=== PATIENT | male | born 1930 | race Caucasian/White ===

== ENCOUNTER 2016-08-21 12:14 | Emergency (ER) | payer BC, OTHER ==
[~2016-08-21] VITALS: Ht 177.8 cm; Wt 83.0 kg
[~2016-08-21 12:14] MED LIST: CHOL2000 PO; CRDCD120 PO; LEVO25TA5 PO; LPT/40 PO; OMEG10007 PO; PRVHFAIN INH; TMF75 PO; VALA500T60 PO
[2016-08-21 12:21] VITALS: TEMP 36.5; Ht 177.8 cm; Wt 83.0 kg
[2016-08-21] MEDS ORDERED: LEVO50TA6 PO (12:45)
[2016-08-21] MEDS ORDERED: ZLF/50 PO (12:45)
[2016-08-21] MEDS ORDERED: CEPH500C PO (12:48)
[2016-08-21] MEDS ORDERED: DIPHTHERIA/TETANUS/PERTUSSIS 0.5 ML SYR/VIAL IM. ONE (13:00)
[2016-08-21 13:12] VITALS: BP 125/58; PULSE 67; O2SAT 97
--- NOTE | 2016-08-21 17:34 | EMERGENCY ROOM VISIT NOTE ---
ED Visit Note First contact with patient: 12:26 Chief complaint: Left palm laceration HPI: This 86-year-old white male presents for evaluation of a laceration on the thenar eminence of his left palm that occurred approximately 26 hours ago. The patient was using a table saw yesterday and accidentally cut himself in the left palm. Bleeding was controlled with pressure. He denies any numbness, tingling, or loss of motion. No other complaints. He did not seek treatment yesterday. His sons brought him in today. Patient states he would not have come in today either. Tetanus is believed to be out of date. Pain is 0/10. He states he poured iodine on the wound yesterday. It is not currently bandaged. Right-hand dominant. Supplemental sheet was not completed Previous surgeries: Cholecystectomy Medical history: Significant for osteoarthritis, non-Hodgkin's lymphoma, hypertension, hypothyroidism, elevated cholesterol, abdominal aortic aneurysm, anemia, and asthma Current Medications: Reviewed and filed in patient's chart Allergies: Aspirin, fenofibrate, metronidazole Tetanus: Greater than 10 years Family History: Noncontributory. Parents are . Social History: Retired. No tobacco use. . REVIEW OF SYSTEM: HEENT: No dizziness, visual problems, hearing loss, or tinnitus. There is no difficulty swallowing and no oral lesions are present. PULMONARY: No cough, shortness of breath, sputum production or hemoptysis. CARDIOVASCULAR: No chest pain, palpitations, shortness of breath or peripheral edema. GASTROINTESTINAL: No diarrhea, constipation, nausea, vomiting, or abdominal pain. GENITOURINARY: No dysuria, frequency, urgency or nocturia. NEUROLOGIC: No weakness, muscle tenderness, epilepsy or history of neurological problems. MUSCULOSKELETAL: No history of joint tenderness/swelling. Positive history of arthritis and arthralgias. SKIN: No rashes or lesions. ENDOCRINE: No history of diabetes, thyroid disorders, or abnormal hair growth. Physical Exam: Vitals: Afebrile. Reviewed and filed in patient's chart General: Well-developed, well-nourished, elderly white male, in no acute distress. No obvious discomfort. He is sitting on the bed. Alert and oriented. Skin: Warm and dry with good turgor. No rashes. No ecchymosis or erythema. The patient is not diaphoretic. No abrasions. The patient has a 2.570 laceration present on the thenar eminence of his left palm. Bleeding is controlled. No foreign material is visible. It is linear. Musculoskeletal: Obvious arthritic changes present at his left thumb basal joint. He has intact motor function to the thumb at the MCP and IP joints. Flexion, extension, and abduction are intact. Strength is 5/5 for resisted motion in all directions. He has intact motor function to the index through little fingers as well. Neurologic: Gross sensation is intact across the hand and digits by soft touch. Capillary refill is equal for all of the digits. Impression: Left palm 2.5 cm laceration Procedure: Informed oral consent was obtained for repair. Left hand was prepped with Betadine and sterile saline. Inspection was performed. No visible foreign material is present. Wound was closed using benzoin and Steri- Strips due to the length of time since initial injury. Fair wound edge approximation was achieved. Hemostasis was achieved. Plan: Patient and his sons were educated regarding today's findings. Conservative care measures were discussed. Cleanse the wound daily with soap and water but do not scrub. Steri-Strips will fall off on their own in 5-7 days. He should keep it protected and covered. Ice and elevate intermittently as needed for discomfort. Tylenol every 6 hours as needed for pain. Prescription was provided for Keflex 500 mg 3 times a day 7 days as a prophylaxis against infection. Wound care handout was provided. He may shower. Risk of infection was discussed at length. I do not think he injured any of the tendons or nerves of the palm or digits. Avoid soaking or swimming for two weeks. Return to the ER for any acute changes or signs of infection. Tetanus was updated using Adacel 0.5 mL IM. Problem List Medical Problems: (1) Abdominal aortic aneurysm Status: Resolved (2) Anemia Status: Resolved (3) Cholecystectomy Status: Resolved (4) Lower extremity aneurysm Status: Resolved (5) Non-Hodgkin's lymphoma Status: Resolved Current/Historical Medications Scheduled Albuterol (Ventolin Hfa), 2 PUFF INH Q4 Atorvastatin (Lipitor), 40 MG PO DAILY Cephalexin Monohydrate (Keflex), 500 MG PO TID Cholecalciferol (Vitamin D3), 2,000 INTUNIT PO QAM Diltiazem HCl (Diltiazem Cd), 120 MG PO QAM Fish Oil ([place]-3), 1 CAP PO DAILY Levothyroxine Sodium (Levothyroxine Sodium), 50 MCG PO DAILY Sertraline HCl (Sertraline HCl), 50 MG PO DAILY Valacyclovir (Valtrex), 500 MG PO DAILY Allergies Coded Allergies: Aspirin (Verified Allergy, Intermediate, Angioedema, 05/15/16) Fenofibrate (Verified Allergy, Intermediate, ? rash, 05/15/16) Metronidazole (Verified Allergy, Intermediate, ? rash, 05/15/16) Vital Signs Date Time Temp Pulse Resp B/P Pulse Ox O2 Delivery O2 Flow Rate FiO2 08/21/16 13:12 67 18 125/58 97 08/21/16 12:21 36.5 67 18 134/65 98 Room Air Medications Administered Medications (Trade) Dose Ordered Sig/Drea Route Start Time Stop Time Status Last Admin Dose Admin Diphtheria/ Pertussis/Tetanus Vacc (Adacel Inj) 0.5 ml ONCE ONCE IM. 08/21/16 13:00 08/21/16 13:01 DC 08/21/16 13:03 0.5 ML Departure Information Impression Primary Impression: Hand laceration Dispostion Home / Self-Care Condition GOOD Prescriptions Cephalexin Monohydrate (Keflex) 500 Mg Cap 500 MG PO TID, #21 CAP Prov: Ramsey Sheppard,P.A. 08/21/16 Forms HOME CARE DOCUMENTATION FORM, TYLENOL USE, IMPORTANT VISIT INFORMATION Patient Instructions My [facility] Additional Instructions Steri-Strips will fall off on their own in 5-7 days-do not scrub or soak Keep the wound covered for protection Keflex one pill 3 times a day 7 days Your tetanus was updated today Follow-up with your PCP or return to the ED for any signs of infection
== END 2016-08-21 13:13 | disposition home or self-care (01) ==
LOC: C.EDD 12:14
DX: S61.412A Laceration without foreign body of left hand, initial encounter (principal); W31.2XXA Contact with powered woodworking and forming machines, initial encounter; I10 Essential (primary) hypertension; E03.9 Hypothyroidism, unspecified; J45.909 Unspecified asthma, uncomplicated; Z90.49 Acquired absence of other specified parts of digestive tract; Z85.72 Personal history of non-Hodgkin lymphomas; Z23 Encounter for immunization

== ENCOUNTER → 2016-11-02 | Outpatient (CLI) | payer BC ==
[~2016-11-02] MED LIST changes: +CEPH500C PO; -CRDCD120 PO; +DILT120C50 PO; -LEVO25TA5 PO; +LEVO50TA6 PO; -TMF75 PO; +ZLF/50 PO
[2016-11-02 13:36] LABS: BASO % 0.4 %; BASO ABS # 0.02 K/uL (0-0.2); COMPLETE YES; EOS % 2.5 %; HEMATOCRIT 36.2 % (42-52); IG% 0.4 %; LYMPH % 4.8 %; LYMPH ABS # 0.27 K/uL (1.2-3.4); MEAN CELL VOLUME 92.1 fL (80-100); MEAN CORPUSCULAR HGB CONC 31.5 g/dl (32-36); MONO % 12.4 %; NEUT % 79.5 %; PLATELET COUNT 212 K/uL (130-400); RED BLOOD COUNT 3.93 M/uL (4.7-6.1); WHITE BLOOD COUNT 5.65 K/uL (4.8-10.8)
[2016-11-02 14:16] LABS: BLOOD UREA NITROGEN 26 mg/dl (7-18); BUN/CREATININE RATIO 12.3 (10-20); CARBON DIOXIDE 25 mmol/L (21-32); CHLORIDE 105 mmol/L (98-107); ESTIMATED AVERAGE GLUCOSE 120 mg/dl; GLUCOSE 137 mg/dl (70-99); HA1C FLAG Normal (Normal); POTASSIUM 4.6 mmol/L (3.5-5.1); SODIUM 139 mmol/L (136-145)
== END | disposition home or self-care (01) ==
LOC: C.LABBC 10:44
PROVIDERS: ATTEND Internal Medicine Geriatric Medicine
DX: I10 Essential (primary) hypertension (principal); C85.90 Non-Hodgkin lymphoma, unspecified, unspecified site; N18.9 Chronic kidney disease, unspecified; E03.9 Hypothyroidism, unspecified; E55.9 Vitamin D deficiency, unspecified; E11.9 Type 2 diabetes mellitus without complications; I48.0 Paroxysmal atrial fibrillation

== ENCOUNTER → 2016-11-08 | Outpatient (CLI) | payer BC ==
--- NOTE | 2016-11-08 14:18 | DIAGNOSTIC IMAGING REPORT ---
RENAL ULTRASOUND HISTORY: ELEVATED CREATININE COMPARISON: Abdomen and pelvis CTA 07/05/2013. Renal ultrasound 09/12/2012.. FINDINGS: Right kidney: 7.5 cm. No hydronephrosis. Multiple cysts with the largest measuring 5 cm. Mild cortical renal thinning. Left kidney: 10.2 cm. No hydronephrosis. Multiple renal cysts with the largest measuring 4.5 cm. Mild cortical renal thinning. Bladder: No bladder wall thickening. The bilateral ureteral jets were identified. The spleen is top normal in size measuring 12.8 cm length. IMPRESSION: No hydronephrosis. Multiple bilateral renal cysts. Electronically signed by: Ravi Richmond M.D. 11/08/2016 2:16 PM Dictated Date/Time: 11/08/2016 2:11 PM
== END | disposition home or self-care (01) ==
LOC: C.ULTRBC 13:35
PROVIDERS: ATTEND Internal Medicine Geriatric Medicine
DX: R79.89 Other specified abnormal findings of blood chemistry (principal); N28.1 Cyst of kidney, acquired